=== PATIENT | male | born 1980 | race Caucasian/White ===

== ENCOUNTER 2018-02-06 13:09 | Emergency (ER) | payer SELFPAY ==
[~2018-02-06] VITALS: Ht 182.9 cm; Wt 75.0 kg
[2018-02-06 13:20] VITALS: BP 119/59; PULSE 53; RESP 18; TEMP 97.5; O2SAT 100
--- NOTE | 2018-02-06 20:35 | PD ---
Physical Exam Date Seen by Provider: Feb 06, 2018 Time Seen by Provider: 15:10 Narrative 37 year old male presents to the emergency department for evaluation of left sided abdominal pain for 2 weeks, but worsened over the past two days. Current pain is 3/10. Moderate severity. Data Data Last Documented VS Vital Signs Date Time Temp Pulse Resp B/P (MAP) Pulse Ox O2 Delivery O2 Flow Rate FiO2 02/06/18 13:20 97.5 53 18 119/59 (79) 100 Orders Orders Complete Blood Count With Diff (02/06/18 13:22) Comprehensive Metabolic Panel (02/06/18 13:22) Lipase (02/06/18 13:22) Urinalysis - C+S If Indicated (02/06/18 13:22) MDM Supervised Visit with KERRY: No Narrative Course 37 year old male presents to the emergency department for evaluation of abdominal pain for 2 weeks. Patient is initially seen in triage and workup is initiated. Patient left AMA before she could be moved to a medical bed. Diagnosis Primary Impression: Left against medical advice Patient Instructions: General Instructions Departure Forms: Tests/Procedures Disposition: 07 AGAINST MEDICAL ADVICE Silvia Bnauelos Feb 06, 2018 20:35
== END 2018-02-06 15:10 | disposition left against medical advice (07) ==
LOC: NED 13:09
DX: R10.9 Unspecified abdominal pain (principal)
CPT/HCPCS: 99281